=== PATIENT | male | born 1950 | race African-American/Black ===

== ENCOUNTER 2023-06-15 10:32 | Emergency (ER) | payer OTHER ==
[~2023-06-15] VITALS: Ht 172.7 cm; Wt 108.1 kg
[2023-06-15 11:50] VITALS: TEMP 98.9
[2023-06-15 12:25] LABS: Basophils # (auto) 0 10 ^3/uL (0-0.2); Basophils % (auto) 0.1 % (0.0-2.0); Eosinophils # (auto) 0.1 10 ^3/uL (0-0.8); Eosinophils % (auto) 0.6 % (0.0-7.0); Hematocrit 43.1 % (41.0-53.0); Hemoglobin 14.1 g/dL (13.5-17.5); Lymphocytes # (auto) 2.4 10 ^3/uL (0.4-5.4); Lymphocytes % (auto) 17.9 % (10.0-50.0); Mean Corpuscular Hemoglobin 29.2 pg (28.0-32.0); Mean Corpuscular Hgb Conc. 32.8 g/dL (32.0-36.0); Mean Corpuscular Volume 89.3 fL (80.0-100.0); Monocytes # (auto) 1.5 10 ^3/uL (0-1.3); Neutrophils # (auto) 9.3 10 ^3/uL (1.6-8.6); Neutrophils % (auto) 70.4 % (37.0-80.0); Red Blood Cells 4.83 10^6/uL (4.5-5.90); Red Cell Distribution Width 14.8 % (11.8-14.3); White Blood Cell 13.3 10^3/uL (4.4-10.8)
[2023-06-15 12:29] LABS: Chloride 103 mmol/L (98-107); Potassium 4.1 mmol/L (3.5-5.1); Sodium 137 mmol/L (136-145)
[2023-06-15 12:30] LABS: Anion Gap 6 (5-15); Calcium 9.2 mg/dL (8.7-10.4)
[2023-06-15 12:34] LABS: Uric Acid 8.9 mg/dL (3.7-9.2)
[2023-06-15 12:35] LABS: Blood Urea Nitrogen 22 mg/dL (9-23); Glucose 86 mg/dL (74-106)
[2023-06-15 13:43] LABS: Carbon Dioxide 28 mmol/L (20-30)
[2023-06-15 13:44] LABS: BUN/Creatinine Ratio 14.4 (10.0-20.0)
[2023-06-15 13:46] LABS: Erythrocyte Sedimentation Rate 53 mm/hr (0-20)
[2023-06-15] MEDS ORDERED: methylPREDNISolone SOD SUCC 125 MG/2 ML VL IM ONE (14:30)
[2023-06-15] MEDS ORDERED: cefTRIAXone SOD 1,000 MG VL IM ONE (14:30)
[2023-06-15] MEDS ORDERED: PRED20TA2 PO (14:49)
[2023-06-15 15:01] VITALS: BP 129/67; PULSE 82; RESP 16; O2SAT 100
== END 2023-06-15 15:02 | disposition home or self-care (01) ==
LOC: ER 10:32
DX: M17.12 Unilateral primary osteoarthritis, left knee (principal); I10 Essential (primary) hypertension; E11.9 Type 2 diabetes mellitus without complications; Z79.899 Other long term (current) drug therapy
CPT/HCPCS: 36415; 73562; 80048; 83605; 84550; 85025; 85652; 86141; 87040; 96372; 99284; J0696; J2930

== ENCOUNTER 2023-10-17 12:26 | Emergency (ER) | payer OTHER ==
[~2023-10-17] VITALS: Ht 180.3 cm; Wt 100.4 kg
[~2023-10-17 12:26] MED LIST: PRED20TA2 PO
[2023-10-17] MEDS ORDERED: DIA5T PO ×2 (13:58→14:01)
[2023-10-17] MEDS: diazePAM 5 MG TAB PO ONE (14:24)
[2023-10-17] MEDS: KETOROLAC TROMETH 30 MG/ML 1ML VIAL IM ONE (14:29)
[2023-10-17 15:31] VITALS: BP 136/78; PULSE 99; RESP 18; TEMP 98; O2SAT 98
== END 2023-10-17 15:38 | disposition home or self-care (01) ==
LOC: ER 12:26
DX: M19.90 Unspecified osteoarthritis, unspecified site (principal); M62.838 Other muscle spasm; I10 Essential (primary) hypertension; E78.5 Hyperlipidemia, unspecified; E11.9 Type 2 diabetes mellitus without complications; F17.210 Nicotine dependence, cigarettes, uncomplicated; Z85.46 Personal history of malignant neoplasm of prostate
CPT/HCPCS: 96372; 99283; J1885

== ENCOUNTER 2023-10-22 15:07 | Emergency (ER) | payer OTHER ==
[~2023-10-22] VITALS: Ht 180.3 cm; Wt 102.0 kg
[~2023-10-22 15:07] MED LIST changes: +DIA5T PO
[2023-10-22] MEDS ORDERED: PERCOT PO (18:31)
[2023-10-22] MEDS: HYDROmorphone HCL 2 MG/ML VL/or syr IM ONE (19:45)
[2023-10-22 19:58] VITALS: BP 134/82; PULSE 76; RESP 20; TEMP 98.7; O2SAT 98
== END 2023-10-22 19:57 | disposition home or self-care (01) ==
LOC: EDBD 15:07 → ER 15:07
DX: M47.816 Spondylosis without myelopathy or radiculopathy, lumbar region (principal); M54.42 Lumbago with sciatica, left side; M54.41 Lumbago with sciatica, right side; G89.29 Other chronic pain; I10 Essential (primary) hypertension; E11.9 Type 2 diabetes mellitus without complications; E78.5 Hyperlipidemia, unspecified; F17.210 Nicotine dependence, cigarettes, uncomplicated; Z79.899 Other long term (current) drug therapy
CPT/HCPCS: 72100; 96372; 99283; J1170